=== PATIENT | male | born 1980 | race Caucasian/White ===

== ENCOUNTER 2016-09-06 21:28 | Emergency (ER) | payer SELFPAY ==
--- NOTE | 2016-09-17 07:17 | ER ---
ADMIT: 09/06/2016 RM/LOC: ER [facility] MR#: [id number] [address] [facility] [address] [place], [place] [id number] TONY CARRILLO [address] [place] [id number] Emergency Room Report SEX: M AGE: 36 : 1980 DATE: 09/06/2016 CHIEF COMPLAINT: Headache and tooth pain. HISTORY OF PRESENT ILLNESS: The patient is a 36-year-old male, who comes in with a headache that has been off and on for the past 2 weeks. He states it does get better when he takes ibuprofen but then comes back. He notes that for at least a week now, he has also had tooth pain. He does seem to think that the tooth pain is associated with same time he is having headache. He has not seen a dentist in over 4 years now. He denies any lightheadedness or dizziness. He is not having any fevers, chills, nausea, or vomiting. He is not having any photophobia and no numbness, tingling, or weakness in any extremities. This was not abrupt onset headache and is not worst headache of life. He does note that he has pain in his tooth with certain pressures on the tooth and with cold liquids. PAST MEDICAL HISTORY: Unremarkable other than very well-controlled asthma. PAST SURGICAL HISTORY: None. MEDICATIONS: Ibuprofen. ALLERGIES: NONE. SOCIAL HISTORY: He smokes a pack a day. He denies any drug or alcohol use. PHYSICAL EXAMINATION: See T-sheet for complete exam. He has no meningismus, and his neurologic exam is unremarkable. His teeth reveal moderately poor dentition in general. No signs of infection. MEDICAL DECISION MAKING: Based on patient's association with dental pain and headache, I believe that he is likely having some dental pain which is causing irritation of the nerve from likely contributing to his headache. He was given Toradol and Reglan here and sent home with a [place] to take. He is to follow up with a dentist as soon as possible, and he actually has an appointment later this week to see a primary care physician which he has just established with to see for his headache. DIAGNOSES: 1. Dental pain. 2. Headache. Juan Carlos Mcguire MD/ ana JOB #: [id number] CC: Juan Carlos Mcguire MD, Attending Physician ADMIT: 09/06/2016 RM/LOC: [facility] MR#: [id number] [address] [place] [id number] TONY CARRILLO [address] [place] [address] Emergency Room Report SEX: M AGE: 36 : 1980 Chiki Kwong MD, Family Physician
== END 2016-09-06 23:00 | disposition home or self-care (01) ==
LOC: ER 21:28
DX: R51 Headache (principal); K08.89 Other specified disorders of teeth and supporting structures; J45.909 Unspecified asthma, uncomplicated; F17.210 Nicotine dependence, cigarettes, uncomplicated